=== PATIENT | female | born 1955 | race American Indian/Alaskan Native ===

== ENCOUNTER 2017-03-31 17:11 | Emergency (ER) | payer MEDICAID, MEDICARE ==
[2017-03-31 17:29] VITALS: BP 132/84
[2017-03-31] MEDS ORDERED: TYLENOL PO ONE (17:52)
[2017-03-31] MEDS ORDERED: FLEXERIL PO ONE (17:52)
--- NOTE | 2017-03-31 18:35 | Emergency Department Report ---
<FAUSTO NAJERA - Last Filed: 03/31/17 18:51> ED Fall HPI - General Chief Complaint: Fall Stated Complaint: FELL OFF A HANDICAP SCOOTER/BACK PAIN Source: patient, family Mode of arrival: Wheelchair Limitations: No Limitations - History of Present Illness Initial Comments: 61 year old female presents to ED with mechanical fall from wheelchair. patient states she was on uneven ground when wheelchair fell over. patient states she hit her head and has a headache. patient denies trauma to neck and has no tenderness to Cspine on exam. patient states she had surgery on her thoracic spine at [facility] and would like xrays of her thoracic spine to make sure her surgical devices are still in place. patient is stable, neurologically intact and in no acute distress. MD Complaint: fall -: Sudden Fall From: wheelchair When Fall Occurred: 1-3 hours [employer] Fall Witnessed: yes, by family Loss of Consciousness: none Prolonged Down Time?: no Symptoms Prior to Fall: none Location: head, back Severity: mild Quality: aching Context: tripped/slipped Associated Symptoms: headache. denies: neck pain, numbness, weakness, chest paint, shortness of breath, abdominal pain, hematuria, lightheaded, vertigo, confusion - Related Data Home Medications Medication Instructions Recorded Confirmed Last Taken Aspirin [Aspirin Enteric Coated] 81 mg PO DAILY 02/19/14 11/02/15 Unknown Hydrochlorothiazide 81 mg PO DAILY 02/19/14 11/02/15 02/18/14 Ibuprofen [Motrin 800 MG tab] 800 mg PO DAILY 02/19/14 11/02/15 02/18/14 amLODIPine [Norvasc] 5 mg PO DAILY 02/19/14 11/02/15 02/18/14 glipiZIDE [Glucotrol] 10 mg PO BID 02/19/14 11/02/15 02/18/14 21:00 metFORMIN [Glucophage] 1,000 mg PO DAILY 02/19/14 11/02/15 Unknown Previous Rx's Medication Instructions Recorded Last Taken Type Famotidine [Pepcid] 40 mg PO QHS #30 tablet 02/20/14 Unknown Rx Potassium Chloride 20 meq PO QDAY #30 packet 02/20/14 Unknown Rx Menthol [Biofreeze] 118 ml TP BID #1 gel..ml. 09/21/15 Unknown Rx Cyclobenzaprine HCl [Flexeril 5 MG 5 mg PO TID #30 tablet 03/31/17 Unknown Rx TAB] Diclofenac Sodium 50 mg PO BID #30 tab 03/31/17 Unknown Rx Allergies Allergy/AdvReac Type Severity Reaction Status Date / Time Penicillins Allergy Itching Verified 02/19/14 12:44 Sulfa (Sulfonamide Allergy Unknown Verified 02/19/14 12:44 Antibiotics) codeine AdvReac Shortness Verified 02/19/14 12:44 of Breath tramadol AdvReac Headache Verified 06/14/14 13:06 ED Review of Systems ROS: Stated complaint: FELL OFF A HANDICAP SCOOTER/BACK PAIN Other details as noted in HPI Constitutional: denies: chills, fever Eyes: denies: eye pain, eye discharge, vision change ENT: denies: ear pain, throat pain Respiratory: denies: cough, shortness of breath, wheezing Cardiovascular: denies: chest pain, palpitations Endocrine: no symptoms reported Gastrointestinal: denies: abdominal pain, nausea, vomiting, diarrhea Genitourinary: denies: urgency, dysuria, discharge Musculoskeletal: back pain, arthralgia, myalgia. denies: joint swelling Skin: denies: rash, lesions Neurological: headache. denies: weakness, numbness, paresthesias, confusion Psychiatric: denies: anxiety, depression Hematological/Lymphatic: denies: easy bleeding, easy bruising ED Past Medical Hx - Past Medical History Previous Medical History?: Yes Hx Hypertension: Yes Hx Congestive Heart Failure: No Hx Diabetes: Yes (Neuropathy) Hx Asthma: No Hx COPD: No Additional medical history: "neuropathy", lumbar spinal stenosis, degenerative disc dz - Surgical History Past Surgical History?: Yes Hx Cholecystectomy: Yes (gallstones removal) Hx Breast Surgery: Yes (left breast) Additional Surgical History: gallstones. back surgery - Social History Smoking Status: Never Smoker Substance Use Type: Prescribed - Medications Home Medications: Home Medications Medication Instructions Recorded Confirmed Last Taken Type Aspirin [Aspirin Enteric Coated] 81 mg PO DAILY 02/19/14 11/02/15 Unknown History Hydrochlorothiazide 81 mg PO DAILY 02/19/14 11/02/15 02/18/14 History Ibuprofen [Motrin 800 MG tab] 800 mg PO DAILY 02/19/14 11/02/15 02/18/14 History amLODIPine [Norvasc] 5 mg PO DAILY 02/19/14 11/02/15 02/18/14 History glipiZIDE [Glucotrol] 10 mg PO BID 02/19/14 11/02/15 02/18/14 21:00 History metFORMIN [Glucophage] 1,000 mg PO DAILY 02/19/14 11/02/15 Unknown History Famotidine [Pepcid] 40 mg PO QHS #30 tablet 02/20/14 11/02/15 Unknown Rx Potassium Chloride 20 meq PO QDAY #30 packet 02/20/14 11/02/15 Unknown Rx Menthol [Biofreeze] 118 ml TP BID #1 gel..ml. 09/21/15 11/02/15 Unknown Rx Cyclobenzaprine HCl [Flexeril 5 MG 5 mg PO TID #30 tablet 03/31/17 Unknown Rx TAB] Diclofenac Sodium 50 mg PO BID #30 tab 03/31/17 Unknown Rx ED Physical Exam - General Limitations: Physical Limitation General appearance: alert, in no apparent distress - Head Head exam: Present: atraumatic, normocephalic, normal inspection - Eye Eye exam: Present: normal appearance, PERRL, EOMI - ENT ENT exam: Present: mucous membranes moist - Neck Neck exam: Present: normal inspection, full ROM. Absent: tenderness - Respiratory Respiratory exam: Present: normal lung sounds bilaterally. Absent: respiratory distress, wheezes - Cardiovascular Cardiovascular Exam: Present: regular rate, normal rhythm. Absent: systolic murmur, diastolic murmur, rubs, gallop - GI/Abdominal GI/Abdominal exam: Present: soft, normal bowel sounds. Absent: distended, tenderness, guarding - Extremities Exam Extremities exam: Present: normal inspection, full ROM. Absent: tenderness - Back Exam Back exam: Present: normal inspection, paraspinal tenderness (thoracic spine) - Neurological Exam Neurological exam: Present: alert, oriented X3 - Psychiatric Psychiatric exam: Present: normal affect, normal mood - Skin Skin exam: Present: warm, dry, intact, normal color. Absent: rash ED Course Vital Signs 03/31/17 17:25 Temperature 98.7 F Pulse Rate 94 H Respiratory 16 Rate Blood Pressure 132/84 O2 Sat by Pulse 94 Oximetry ED Medical Decision Making - Radiology Data Radiology results: report reviewed CT brain: normal CT of head Xray Tspine: Critical care attestation.: If time is entered above; I have spent that time in minutes in the direct care of this critically ill patient, excluding procedure time. ED Disposition Clinical Impression: Accident due to mechanical fall without injury Qualifiers: Encounter type: initial encounter Qualified Code(s): W19.XXXA - Unspecified fall, initial encounter Disposition: DC-01 TO HOME OR SELFCARE Condition: Stable Instructions: Fall Prevention (ED), Acute Headache (ED) Additional Instructions: Return to ED if any new symptoms Prescriptions: Cyclobenzaprine HCl [Flexeril 5 MG TAB] 5 mg PO TID #30 tablet Diclofenac Sodium 50 mg PO BID #30 tab Referrals: PRIMARY CARE, [Primary Care Provider] - 3-5 Days [facility] [Outside] - 3-5 Days [facility] [Outside] - 3-5 Days [facility] [Outside] - 3-5 Days Forms: Accompanied Note, Work/School Release Form(ED) <GUERO BARRETT - Last Filed: 03/31/17 20:18> ED Medical Decision Making - Radiology Data Radiology results: report reviewed, image reviewed FINAL REPORT EXAM: XR SPINE THORACIC 3V HISTORY: fall TECHNIQUE: Three views of the thoracic spine including a lateral swimmer's view PRIORS: None. FINDINGS: There is been posterior metallic fusion at T9-10. There is multilevel loss of disc height and endplate osteophyte formation consistent with degenerative disc disease. There is no evidence of acute fracture. The thoracic vertebrae are normal in height and alignment. The bones are normally mineralized. The soft tissues are unremarkable. IMPRESSION: No evidence of acute fracture Transcribed By: [facility] [place] Dictated By: MIGUELINA HODGSON MD Electronically Authenticated By: MIGUELINA HODGSON MD Signed Date/Time: 03/31/171935 FINAL REPORT EXAM: CT HEAD/BRAIN WO CON HISTORY: fall TECHNIQUE: CT was performed from the foramen magnum through the vertex in the axial plane without the use of intravenous contrast. PRIORS: None. FINDINGS: The hoang/white matter attenuation pattern is normal. There is no mass lesion or mass effect. There are no abnormal extra-axial fluid collections. There is no evidence of acute intracranial hemorrhage or infarct. The ventricles are of normal size and configuration. The skull and orbits are unremarkable. The visualized paranasal sinuses are clear. IMPRESSION: Normal CT of the head. Transcribed By: MERCEDES Dictated By: MIGUELINA HODGSON MD Electronically Authenticated By: MIGUELINA HODGSON MD Signed Date/Time: 03/31/171827 - Medical Decision Making This is a year-old female presents with headache status post fall from uneven ground ED course: CT scan of the head negative- see results above X-ray Of the cervical spine, negative for fracture- see above Discussed findings with patient. Discussed the patient take medication as prescribed Patient is alert and oriented 3 she is in no neurological deficit or acute distress Discussed the patient to follow up with primary care physician. discussed the patient if any new symptoms or worsening symptoms to return to ED. ED Disposition Is pt being admited?: No Does the pt Need Aspirin: No Time of Disposition: 20:16
--- NOTE | 2017-03-31 19:42 | XRay Report ---
FINAL REPORT EXAM: XR SPINE THORACIC 3V HISTORY: fall TECHNIQUE: Three views of the thoracic spine including a lateral swimmer's view PRIORS: None. FINDINGS: There is been posterior metallic fusion at T9-10. There is multilevel loss of disc height and endplate osteophyte formation consistent with degenerative disc disease. There is no evidence of acute fracture. The thoracic vertebrae are normal in height and alignment. The bones are normally mineralized. The soft tissues are unremarkable. IMPRESSION: No evidence of acute fracture
== END 2017-03-31 20:37 | disposition home or self-care (01) ==
LOC: ED 17:11
DX: R51 Headache (principal); I10 Essential (primary) hypertension; E11.9 Type 2 diabetes mellitus without complications; Z88.0 Allergy status to penicillin; Z88.2 Allergy status to sulfonamides; Z88.5 Allergy status to narcotic agent; Z88.8 Allergy status to other drugs, medicaments and biological substances; Z79.82 Long term (current) use of aspirin; W19.XXXA Unspecified fall, initial encounter; Y93.89 Activity, other specified; Y99.9 Unspecified external cause status; Y92.89 Other specified places as the place of occurrence of the external cause
CPT/HCPCS: 70450; 72072